=== PATIENT | female | born 1975 | race Hispanic/Latino ===

== ENCOUNTER 2018-10-17 17:57 | Emergency (ER) | payer OTHER ==
[~2018-10-17] VITALS: Ht 157.5 cm; Wt 80.0 kg
[~2018-10-17 17:57] MED LIST: MOTRIN600 MG/TAB PO; PERCOCET 5/325M1 TAB PO
[2018-10-17] MEDS ORDERED: FLEXERIL5 MG PO (20:12)
[2018-10-17 20:20] VITALS: BP 144/79
== END 2018-10-17 20:20 | disposition home or self-care (01) | DRG 605 ==
LOC: ED 17:57
DX: S40.012A Contusion of left shoulder, initial encounter (principal); S50.02XA Contusion of left elbow, initial encounter; S16.1XXA Strain of muscle, fascia and tendon at neck level, initial encounter; V58.0XXA Driver of pick-up truck or van injured in noncollision transport accident in nontraffic accident, initial encounter; Y93.89 Activity, other specified; Y92.79 Other farm location as the place of occurrence of the external cause

== ENCOUNTER 2019-03-21 13:25 | Emergency (ER) | payer SELFPAY ==
[~2019-03-21] VITALS: Ht 157.5 cm; Wt 62.0 kg
[~2019-03-21 13:25] MED LIST changes: +FLEXERIL5 MG PO
[2019-03-21 14:10] VITALS: BP 158/86
== END 2019-03-21 14:30 | disposition home or self-care (01) | DRG 125 ==
LOC: ED 13:25
DX: S00.12XA Contusion of left eyelid and periocular area, initial encounter (principal); W22.8XXA Striking against or struck by other objects, initial encounter; Y93.89 Activity, other specified; Y99.0 Civilian activity done for income or pay

== ENCOUNTER 2022-01-05 08:49 | Day surgery (SDC) | payer OTHER ==
[~2022-01-05] VITALS: Ht 157.5 cm; Wt 61.2 kg
[~2022-01-05 08:49] MED LIST changes: +MULTI COMPLETE PO; +NAPROXEN EC500 MG PO
[2022-01-05] MEDS ORDERED: PERCOCET 5/321 COMBO PO (10:52)
[2022-01-05 13:20] LABS: GFR > 60 ML/MIN (>=60 (CALC)); GFR FOR AFR.AMER. > 60 ML/MIN (>=60 (CALC))
[2022-01-05 14:52] VITALS: BP 115/73
== END 2022-01-05 15:45 | disposition home or self-care (01) | DRG 350 ==
LOC: ORM 08:49
PROVIDERS: ATTEND Surgery
PROC: 0YU60JZ Supplement Left Inguinal Region with Synthetic Substitute, Open Approach (ICD-10-PCS; principal; 2022-01-05)
DX: K40.90 Unilateral inguinal hernia, without obstruction or gangrene, not specified as recurrent (principal); K66.1 Hemoperitoneum
CPT/HCPCS: C9290; J0131; Q9967